=== PATIENT | female | born 1955 | race Caucasian/White ===

== ENCOUNTER → 2024-04-26 11:30 | Outpatient (REF) | payer MEDICARE, BC, SELFPAY | LOC: WDC 11:30 | PROVIDERS: ATTENDING PHYSICIAN Internal Medicine | DX: Z12.31 Encounter for screening mammogram for malignant neoplasm of breast (principal) | CPT/HCPCS: 77063; 77067 ==

== ENCOUNTER → 2024-06-19 12:44 | Outpatient (REF) | payer MEDICARE, BC, SELFPAY | LOC: RCS 12:44 | PROVIDERS: ATTENDING PHYSICIAN Internal Medicine | DX: R06.02 Shortness of breath (principal) | CPT/HCPCS: 93017 ==

== ENCOUNTER → 2024-11-10 15:10 | Outpatient (REF) | payer MEDICARE, BC, SELFPAY | LOC: RAD 15:10 | PROVIDERS: ATTENDING PHYSICIAN Internal Medicine | DX: M25.551 Pain in right hip (principal) | CPT/HCPCS: 72100; 73502 ==

== ENCOUNTER → 2025-04-27 11:41 | Outpatient (REF) | payer MEDICARE, BC, SELFPAY | LOC: WDC 11:41 | PROVIDERS: ATTENDING PHYSICIAN Internal Medicine | DX: Z12.31 Encounter for screening mammogram for malignant neoplasm of breast (principal) | CPT/HCPCS: 77063; 77067 ==

== ENCOUNTER 2025-05-30 06:31 | Day surgery (SDC) | payer MEDICARE, BC, SELFPAY | END 2025-05-30 11:56 | disposition home or self-care (01) | LOC: GI 06:31 | PROVIDERS: ATTENDING PHYSICIAN Specialist | DX: Z12.11 Encounter for screening for malignant neoplasm of colon (principal); K63.5 Polyp of colon; Z86.0101 Personal history of adenomatous and serrated colon polyps | CPT/HCPCS: 45380; 88305 ==